=== PATIENT | female | born 1990 | race Caucasian/White ===

== ENCOUNTER → 2017-03-03 | Outpatient (CLI) | payer OTHER ==
[~2017-03-03] MED LIST: PRENTAB26 PO
== END | disposition home or self-care (01) ==
LOC: C.PAPS 12:00
PROVIDERS: ATTEND Physician Assistant
DX: Z01.419 Encounter for gynecological examination (general) (routine) without abnormal findings (principal)

== ENCOUNTER → 2017-05-24 | Outpatient (CLI) | payer OTHER ==
[~2017-05-24] MED LIST changes: +OXYC-57 PO
[2017-05-24 10:23] LABS: HEMATOCRIT 39.7 % (37-47); HEMOGLOBIN 13.1 g/dL (12.0-16.0); MEAN CELL VOLUME 91.9 fL (80-100); MEAN CORPUSCULAR HEMOGLOBIN 30.3 pg (25-34); MEAN PLATELET VOLUME 10.4 fL (7.4-10.4); PLATELET COUNT 263 K/uL (130-400); RED CELL DISTRIBUTION WIDTH CV 12.6 % (11.5-14.5); RED CELL DISTRIBUTION WIDTH SD 42.7 fL (36.4-46.3); WHITE BLOOD COUNT 4.28 K/uL (4.8-10.8)
== END | disposition home or self-care (01) ==
LOC: C.LAB1850 09:01
PROVIDERS: ATTEND Obstetrics & Gynecology
DX: Z01.812 Encounter for preprocedural laboratory examination (principal)

== ENCOUNTER → 2017-05-25 | Day surgery (SDC) | payer OTHER ==
[2017-04-17 09:55] VITALS: Ht 153.7 cm; Wt 59.1 kg
--- NOTE | 2017-05-24 13:47 | HISTORY & PHYSICAL EXAMINATION ---
DATE OF ADMISSION: 05/25/2017 PREOPERATIVE HISTORY AND PHYSICAL ADMITTING DIAGNOSES: Desired permanent surgical sterilization. ADMISSION HISTORY: The patient is a 26-year-old 3, para 3, last menstrual period of 20 May, who is admitted for permanent surgical sterilization. The patient adamantly desires no further childbearing capacity, and understands the procedure and wishes to proceed. PAST MEDICAL HISTORY: OBSTETRICAL: x3. GYNECOLOGICAL: As above. MEDICAL: None. SURGICAL: [place] teeth extraction. ALLERGIES: No known drug allergies. SOCIAL HISTORY: Former smoker. FAMILY HISTORY: Noncontributory. REVIEW OF SYSTEMS: As per HPI. ADMISSION PHYSICAL EXAMINATION: GENERAL: Shows a pleasant female in no acute distress. VITAL SIGNS: Blood pressure 118/78, height of 5 feet 1 inches and weight 140 pounds. HEENT EXAMINATION: Unremarkable. NECK: Supple. LUNGS: Clear. HEART: With a regular rhythm and rate. ABDOMEN: Soft, nontender. PELVIC: Shows normal external genitalia. The vaginal vault is pink and rugated. The cervical os multiparous and closed. Bimanual examination shows an anterior mobile uterus. Adnexa show no palpable masses. RECTAL: Confirmatory. EXTREMITIES: Shows no deep calf tenderness. NEUROLOGIC: Grossly intact. IMPRESSION: A 26-year-old G3, P3 for permanent surgical sterilization. PLAN: The risks, benefits and alternatives to the surgery have been discussed. While the benefits will be permanent surgical sterilization, the risks are bleeding, infection, inadvertent injury to internal organs requiring additional surgery and treatment, regret, and failure of the procedure itself. Failure rate for the procedure quoted at 3-5%. The patient understands this. Permit has been signed and she wishes to proceed.
[~2017-05-25] VITALS: Ht 153.7 cm; Wt 59.1 kg
[~2017-05-25] MED LIST changes: +ATROPINE SULFATE 0.1 MG/ML 5ML SYR IV PRN; +DEXAMETHASONE SOD INJ 4 MG/ML VIAL IV PRN; +DEXAMETHASONE SOD INJ 4 MG/ML VIAL ONE; +EpHEDrine SULFATE INJ 50 MG/ML AMP IV PRN; +EpHEDrine SULFATE INJ 50 MG/ML AMP ONE; +FENTANYL CITRATE INJ 50 MCG/1 ML 2 ML VIAL IV PRN; +FENTANYL CITRATE INJ 50 MCG/1 ML 2 ML VIAL ONE; +GLYCOPYRROLATE INJ 0.2 MG/ML VIAL ONE; +IBUPROFEN 600 MG TAB PO PRN; +KETOROLAC TROMETHAMINE 30 MG/ML VIAL IV. PRN; +KETOROLAC TROMETHAMINE 30 MG/ML VIAL ONE; +LABETALOL HCL IV 5 MG/ML 20ML IV PRN; +LACTATED RINGER'S 1000ML 1,000 ML IV SCH; +LIDOCAINE HCL 2% 2 ML VIAL (20MG/ML) ONE; +METOCLOPRAMIDE HCL INJ 5 MG/ML 2 ML VIAL IV PRN; +MIDAZOLAM HCL 1 MG/ML 2ML VIAL ONE; +MoRPHine SULFATE 10 MG/ML CARP/VIAL IV PRN; +NEOSTIGMINE METHYLSULFATE 5 MG/5 ML SYR ONE; +ONDANSETRON INJ 2 MG/ML 2 ML VIAL IV PRN; +ONDANSETRON INJ 2 MG/ML 2 ML VIAL ONE; +OXYCODONE/ACETAMINOPHEN 5-325 TAB PO PRN; +PHENYLEPHRINE 100MCG/ML 5ML SYR IV PRN; +PHENYLEPHRINE HCL INJ 10 MG/ML VIAL ONE; +PROPOFOL IV EMULSION 10 MG/ML 20 ML VIAL IV ONE; +SODIUM CHLORIDE 0.9% 1000ML 1,000 ML IV SCH; +SUCCINYLCHOLINE CHLORIDE 20 MG/ML 10 ML VIAL IV ONE
--- NOTE | 2017-05-25 08:33 | History & Physical Bridge - [place] ---
H&P Re-Evaluation Bridge Note: I have examined the patient, reviewed the History & Physical and in the interval since the performance of the History & Physical I have noted the following changes of clinical significance: No changes noted
--- NOTE | 2017-05-25 09:20 | [facility] Post Operative Brief Note ---
Immediate Operative Summary Operative Date May 25, 2017. Pre-Operative Diagnosis Desires permanent surgical sterilization Post-Operative Diagnosis Same Procedure(s) Performed Laparoscopic Tubal Sterilization Surgeon Dr. Sevilla Boiler Erector Surgeon(s) None Estimated Blood Loss Minimal Findings See Below Normal appearing tubes and ovaries, normal appendix, bilateral fulguration Fluids (cc crystalloids) 1000 Specimens None Drains None Anesthesia Type General Complication(s) none Disposition Accompanied Pt To Recovery: no (note completed) Disposition: Recovery Room / PACU
--- NOTE | 2017-05-25 09:27 | Discharge Instructions-SurgCtr ---
Discharge Instructions Date of Service May 25, 2017. Visit Reason for Visit: Request For Sterilization Discharge Discharge Diagnosis / Problem: same Discharge Goals Goal(s): Therapeutic intervention Activity Recommendations Activity Limitations: as noted below Anesthesia . Post Anesthesia Instructions: If you have had General Anesthesia or IV Sedation: * Do not drive today. * Resume driving when surgeon permits. * Do not make important decisions or sign legal documents today. * Call surgeon for: 1. Temperature elevations greater than 101 degrees F. 2. Uncontrollable pain. 3. Excessive bleeding. 4. Persistent nausea and vomiting. 5. Medication intolerance (nausea, vomiting or rash). * For nausea and vomiting use only clear liquids such as: tea, soda, bouillon until nausea subsides, then gradually increase diet as tolerated. * If you have any concerns or questions, call your surgeon's office. If physician is unavailable and it is an emergency, call 911 or go to the nearest emergency room. . Instructions / Follow-Up Instructions / Follow-Up ACTIVITY RECOMMENDATIONS: * Rest the first 2-3 days. You should be back to your normal activity levels by day 3. * No heavy lifting for 2 weeks. * No intercourse, tampons or douching for 1-2 weeks. * You may shower the next day. * Do not drive anytime that you are taking narcotic pain medicines. RETURN TO SCHOOL/WORK: * May return to school or work after 2-3 days. DIET: Nausea may occur in the immediate post-operative period. If so, take clear liquids such as tea, bouillon, apple juice until all nausea has subsided, then resume usual diet. MEDICATIONS: Resume previous medications unless instructed otherwise by your surgeon. Ibuprofen 200mg 2-3 tablets every 4-6 hours as needed -- OR -- Aleve 2 tablets every 8-12 hours as needed for post-operative discomfort Medications are over the counter. Tylenol may be used if above medications are contraindicated or not preferred. Medication should be taken with food or milk. Do not take on an empty stomach. SPECIAL CARE INSTRUCTIONS: * Check temperature twice daily for one week. report any elevation over 101 degrees. * You may experience some vagina spotting and/or bleeding. This is normal for 1 -2 weeks and should not be heavier than a normal period. If it is unusual in amount, call your physician. * Post-operative discomfort may consist of a sore throat, a "bloated" feeling and pain in the shoulders. these are normal symptoms, which usually only last for 2-3 days. * Remove band-aids tomorrow and shower. There is no need to replace band-aids unless there is drainage or discomfort. FOLLOW UP VISIT: Call your doctor's office for a post-operative 2 week visit if not already scheduled. Diet Recommendations Home Diet: resume previous diet Procedures Procedures Performed: Laparoscopic Tubal Sterilization Pending Studies Studies pending at discharge: no Medical Emergencies . Who to Call and When: Medical Emergencies: If at any time you feel your situation is an emergency, please call 911 immediately. . 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 . "Provider Documentation" section prepared by Bello Sevilla. . [place] Drug Monitoring Program Search Results: patient reviewed within database, no issues identified
[2017-05-25 10:12] VITALS: TEMP 36.6
[2017-05-25 10:40] VITALS: BP 111/74; PULSE 75; O2SAT 96
--- NOTE | 2017-05-25 10:56 | Anesthesia Progress Nt - [facility] ---
Anesthesia Post Op Note Date & Time May 25, 2017 at 10:55 Vital Signs Pain Intensity: 3.0 Vital Signs Past 12 Hours Date Time Temp Pulse Resp B/P (MAP) Pulse Ox O2 Delivery O2 Flow Rate FiO2 05/25/17 10:40 75 16 111/74 (86) 96 Room Air 05/25/17 10:12 36.6 74 16 145/71 (95) 94 Room Air 05/25/17 10:05 37.1 107/69 05/25/17 10:04 85 17 05/25/17 10:04 87 17 99 05/25/17 10:01 113/78 05/25/17 09:59 74 18 05/25/17 09:59 73 18 92 05/25/17 09:55 123/72 05/25/17 09:54 82 15 05/25/17 09:54 81 15 96 05/25/17 09:50 121/82 05/25/17 09:49 74 10 05/25/17 09:49 75 10 100 05/25/17 09:45 120/85 05/25/17 09:44 74 18 100 05/25/17 09:44 74 18 05/25/17 09:40 132/87 05/25/17 09:39 81 24 100 05/25/17 09:39 80 24 05/25/17 09:35 133/85 05/25/17 09:35 127/86 05/25/17 09:34 92 05/25/17 09:34 36.6 84 16 133/85 99 Mask 6 05/25/17 09:34 92 98 05/25/17 07:25 36.8 92 16 120/89 (99) 98 Room Air Notes Mental Status: alert / awake / arousable, participated in evaluation Pt Amnestic to Procedure: Yes Nausea / Vomiting: adequately controlled Pain: adequately controlled Airway Patency, RR, SpO2: stable & adequate BP & HR: stable & adequate Hydration State: stable & adequate Anesthetic Complications: no major complications apparent
--- NOTE | 2017-05-25 11:03 | OPERATIVE REPORT ---
DATE OF OPERATION: 05/25/2017 PREOPERATIVE DIAGNOSES: Desire permanent surgical sterilization. POSTOPERATIVE DIAGNOSIS: Same. PROCEDURE PERFORMED: Laparoscopic tubal ligation. SURGEON: Bello Sevilla MD. ANESTHESIA: General. FINDINGS: Incidental erythematous spot on left thigh consistent with a bug bite away from the operative field. Bilateral tubal ligation performed until resistance met 0. PROCEDURE IN DETAIL: The patient was taken to the operating room and after general anesthesia, was placed in a dorsal lithotomy position and draped and prepped in the usual fashion. A small incidental erythematous spot on the left side consistent with a bug bite was noted. This was away from the operative field. Bladder was drained of any residual urine. Single tooth tenaculum was used to grasp the anterior lip of the cervix. The cervical os was cannulated with the acorn cannula and fastened to the tenaculum. Small subumbilical incision was made and the Veress needle was introduced into the pelvic cavity which was then insufflated with 3 liters of CO2. Veress needle was removed and a sharp trocar was used to introduce the laparoscope. Pelvic organs were visualized and then under direct laparoscopic guidance, a suprapubic trocar was used to introduce the stirring probe. Pelvic organs were visualized. Normal appearing uterus, tubes, and ovaries, normal appearing appendix. Stirring probe was removed and the bipolar cautery instrument was inserted. Bilateral fulguration of the fallopian tube in the proximal third in 3 contiguous see until resistance met 0. Hemostasis was present. CO2 was allowed to escape from the pelvic cavity. The trocars were removed under direct laparoscopic guidance. The skin incisions were closed with 4-0 Vicryl subcuticular sutures. Sterile dressings were applied. Tenaculum and acorn cannula were removed from the cervix. The patient taken out of dorsal lithotomy to recovery room in satisfactory condition. I attest to the content of the Intraoperative Record and any orders documented therein. Any exception s are noted below.
== END | disposition home or self-care (01) ==
LOC: X.SURG 07:14
PROVIDERS: ATTEND Obstetrics & Gynecology
DX: Z30.2 Encounter for sterilization (principal); Z87.891 Personal history of nicotine dependence